=== PATIENT | female | born 1965 ===

== ENCOUNTER 2016-08-04 22:10 | Emergency (ER) | payer SELFPAY ==
[2016-08-04 23:18] VITALS: RESP 18; TEMP 98.4
[2016-08-05 00:06] VITALS: BP 124/79; PULSE 67; O2SAT 100
--- NOTE | 2016-08-05 00:13 | C.PDOC ---
History Of Present Illness 51 y/o female presents to ED with complaint of neck and upper back pain for 1 week. Patient states she now has left forearm pain, worsening after heavy lifting. She notes she has been using OTC Aleve and ibuprofen without relief. Patient denies chest pain, SOB, palpitation, new weakness or numbness, or other associated symptoms. Time Seen by Provider: 08/04/16 22:35 Chief Complaint (Nursing): Upper Extremity Problem/Injury History Per: Patient History/Exam Limitations: no limitations Onset/Duration Of Symptoms: Days Current Symptoms Are (Timing): Still Present Quality: "Pain" Exacerbating Factor(s): Movement Recent travel outside of the [place]: No Past Medical History Reviewed: Historical Data, Nursing Documentation, Vital Signs Vital Signs: Last Vital Signs Temp 98.4 F 08/04/16 23:15 Pulse 67 08/05/16 00:06 Resp 18 08/05/16 00:06 BP 124/79 08/05/16 00:06 Pulse Ox 100 08/05/16 00:17 Family History: States: Unknown Family Hx - Social History Hx Tobacco Use: No Hx Alcohol Use: Yes Hx Substance Use: No Review Of Systems Except As Marked, All Systems Reviewed And Found Negative. Constitutional: Negative for: Fever, Chills Cardiovascular: Negative for: Chest Pain Respiratory: Negative for: Shortness of Breath, Wheezing Musculoskeletal: Positive for: Neck Pain, Back Pain Skin: Negative for: Rash Neurological: Negative for: Weakness, Numbness Physical Exam - Physical Exam Appears: Non-toxic, No Acute Distress Skin: Normal Color, Warm, Dry Head: Atraumatic, Normacephalic Neck: Normal ROM, No Midline Cervical Tenderness, Paracervical Tenderness (Left) , No Step Off Deformity, Supple Chest: Symmetrical Cardiovascular: Rhythm Regular, No Murmur Respiratory: Normal Breath Sounds, No Rales, No Rhonchi, No Wheezing Back: No Vertebral Tenderness, Paraspinal Tenderness (left subscapular tenderness) Extremity: Normal ROM, Capillary Refill (< 2 sec. ) Neurological/Psych: Oriented x3, Normal Speech, Normal Cognition, Normal Motor, Normal Sensation ED Course And Treatment ECG: Interpreted By Me ECG Rhythm: Sinus Rhythm ECG Interpretation: No Acute Changes Rate From EC (bpm) O2 Sat by Pulse Oximetry: 100 (RA) Pulse Ox Interpretation: Normal Progress Note: Treated with Toradol and Valium. EKG ordered and reviewed, NSR at 65bpm, no ST/T wave changes. On reassessment, patient is in no acute distress , with improvement of back pain. BP has improved. Patient has no bony tenderness , extremity numbness or weakness, or abdominal pain. Patient is ambulatory in the emergency department without difficulty. Patient was advised to follow up with PMD/clinic in 1-2 days. Disposition Counseled Patient/Family Regarding: Diagnosis, Need For Followup, Rx Given - Disposition Referrals: [facility] [Outside] Disposition: HOME/ ROUTINE Disposition Time: 00:10 Condition: GOOD Additional Instructions: Luli las medicinas Sigue en clinica Regresa si peor Prescriptions: Cyclobenzaprine [Cyclobenzaprine HCl] 10 mg PO HS #14 tab Naproxen [Naprosyn] 1 tab PO BID PRN #25 tab PRN Reason: Pain Instructions: Cervical Strain (DC) Print Language: [place] - Clinical Impression Clinical Impression: Cervical radiculopathy - PA / PATIENT ACCESS REGISTRAR / Resident Statement MD/DO has reviewed & agrees with the documentation as recorded. - Scribe Statement The provider has reviewed the documentation as recorded by the Laura Fonseca Provider Scribe Attestation: All medical record entries made by the Laura were at my direction and personally dictated by me. I have reviewed the chart and agree that the record accurately reflects my personal performance of the history, physical exam, medical decision making, and the department course for this patient. I have also personally directed, reviewed, and agree with the discharge instructions and disposition.
--- NOTE | 2016-08-05 10:43 | CARD ---
APPROVED REPORT EKG Measurement Heart [id number] <Conclusion> Normal sinus rhythm Normal ECG
== END 2016-08-05 00:16 | disposition home or self-care (01) ==
LOC: C.ER 22:10
DX: M54.12 Radiculopathy, cervical region (principal)
CPT/HCPCS: 93005; 96372; 99284; J1885